=== PATIENT | female | born 1980 | race Caucasian/White ===

== ENCOUNTER 2016-11-14 19:59 | Emergency (ER) | payer MEDICAID, OTHER ==
[~2016-11-14] VITALS: Ht 160 cm; Wt 106.0 kg
[~2016-11-14 19:59] MED LIST: ZOFR4TAB3 SL
[2016-11-14 20:01] VITALS: BP 131/67; PULSE 82; RESP 16; TEMP 98.3; O2SAT 98
[2016-11-15] MEDS ORDERED: SODIUM CHLOR 0.9% 1000 ML INJ 1,000 ML IV SCH (00:25)
--- NOTE | 2016-11-15 00:29 | PD ---
HPI Chief Complaint: Abdominal Pain Time Seen by Provider: 00:25 Travel History International Travel<30 days: No Contact w/Intl Traveler<30days: No Traveled to known affect area: No History of Present Illness HPI 36-year-old female presents to the emergency department by private transportation for complaint of nausea vomiting abdominal pain and diarrhea. Symptoms began this evening. Patient has vomited 5 times and had diarrhea 4 times. Patient denies fever or chills respiratory illness or dysuria. Patient' s had no hematemesis no coffee-ground emesis no melena or hematochezia. Patient has 3 children who have had the same symptoms. Patient denies any dietary indiscretion no reportable water ingestion or foreign travel. Patient is status post cholecystectomy. Patient has history of gastritis. Patient is taking no medications for symptom relief. Patient's had normal urine output. Last menstrual. Was 3 weeks ago and normal for her. Pain is rated as 8-9/10 in intensity. PFSH Past Medical History Narrative Medical Gastritis cholecystectomy 4 para 3 nursing notes reviewed ?: Not LMP: 3 WKS AGO : 4 Para: 3 Tubal Ligation: Yes Past Surgical History Cholecystectomy: Yes Social History Alcohol Use: No Tobacco Use: No Substance Use: No Allergies-Medications (Allergen,Severity, Reaction): Coded Allergies: No Known Allergies (Unverified , 11/15/16) Reported Meds & Prescriptions Reported Meds & Active Scripts Active No Active Prescriptions or Reported Medications Review of Systems Except as stated in HPI: all other systems reviewed are Neg General / Constitutional: No: Fever, Chills HENT: No: Congestion Cardiovascular: No: Chest Pain or Discomfort Respiratory: No: Shortness of Breath Gastrointestinal: Positive: Nausea, Vomiting, Diarrhea, Abdominal Pain Genitourinary: No: Dysuria, Flank Pain Musculoskeletal: No: Myalgias, Arthralgias Skin: No Rash Neurologic: No: Weakness Hematologic/Lymphatic: No: Lymph Node Enlargement Physical Exam Narrative GENERAL: Well-developed well-nourished obese female in no acute distress no respiratory distress SKIN: Warm and dry. HEAD: Normocephalic. EYES: No scleral icterus. No injection or drainage. NECK: Supple, trachea midline. No JVD or lymphadenopathy. CARDIOVASCULAR: Regular rate and rhythm without murmurs, gallops, or rubs. RESPIRATORY: Breath sounds equal bilaterally. No accessory muscle use. GASTROINTESTINAL: Abdomen soft, reproducible epigastric tenderness without guarding or rebound, nondistended. MUSCULOSKELETAL: No cyanosis, or edema. BACK: Nontender without obvious deformity. No CVA tenderness. Data Data Last Documented VS Vital Signs Date Time Temp Pulse Resp B/P Pulse Ox O2 Delivery O2 Flow Rate FiO2 11/14/16 20:01 98.3 82 16 131/67 98 Room Air Orders Complete Blood Count With Diff (11/15/16 00:25) Comprehensive Metabolic Panel (11/15/16 00:25) Lipase (11/15/16 00:25) Urinalysis - C+S If Indicated (11/15/16 00:25) Iv Access Insert/Monitor (11/15/16 00:25) Ecg Monitoring (11/15/16 00:25) Oximetry (11/15/16 00:25) Ondansetron Inj (Zofran Inj) (11/15/16 00:30) Pantoprazole Inj (Protonix Inj) (11/15/16 00:30) Sodium Chlor 0.9% 1000 Ml Inj (Ns 1000 M (11/15/16 00:25) Sodium Chloride 0.9% Flush (Ns Flush) (11/15/16 00:30) Ed Urine Pregnancytest Poc (11/15/16 00:25) Labs Laboratory Tests Test 11/15/16 11/15/16 00:26 00:40 White Blood Count 11.3 TH/MM3 Red Blood Count 4.24 MIL/MM3 Hemoglobin 12.2 GM/DL Hematocrit 36.4 % Mean Corpuscular Volume 85.8 FL Mean Corpuscular Hemoglobin 28.8 PG Mean Corpuscular Hemoglobin 33.5 % Concent Red Cell Distribution Width 14.5 % Platelet Count 241 TH/MM3 Mean Platelet Volume 8.6 FL Neutrophils (%) (Auto) 81.2 % Lymphocytes (%) (Auto) 11.1 % Monocytes (%) (Auto) 6.7 % Eosinophils (%) (Auto) 0.7 % Basophils (%) (Auto) 0.3 % Neutrophils # (Auto) 9.2 TH/MM3 Lymphocytes # (Auto) 1.3 TH/MM3 Monocytes # (Auto) 0.8 TH/MM3 Eosinophils # (Auto) 0.1 TH/MM3 Basophils # (Auto) 0.0 TH/MM3 CBC Comment DIFF FINAL Differential Comment Sodium Level 139 MEQ/L Potassium Level 4.1 MEQ/L Chloride Level 108 MEQ/L Carbon Dioxide Level 24.5 MEQ/L Anion Gap 7 MEQ/L Blood Urea Nitrogen 10 MG/DL Creatinine 0.71 MG/DL Estimat Glomerular Filtration 94 ML/MIN Rate Random Glucose 92 MG/DL Calcium Level 8.2 MG/DL Total Bilirubin 0.8 MG/DL Aspartate Amino Transf 19 U/L (AST/SGOT) Alanine Aminotransferase 20 U/L (ALT/SGPT) Alkaline Phosphatase 84 U/L Total Protein 7.4 GM/DL Albumin 3.6 GM/DL Lipase 69 U/L Urine Color YELLOW Urine Turbidity HAZY Urine pH 6.0 Urine Specific [place] 1.028 Urine Protein TRACE mg/dL Urine Glucose (UA) NEG mg/dL Urine Ketones NEG mg/dL Urine Occult Blood NEG Urine Nitrite NEG Urine Bilirubin NEG Urine Urobilinogen LESS THAN 2.0 MG/DL Urine Leukocyte Esterase SMALL Urine RBC 3 /hpf Urine WBC 4 /hpf Urine Squamous Epithelial 5 /hpf Cells Urine Mucus FEW /lpf Microscopic Urinalysis Comment CULT NOT INDICATED MDM Medical Decision Making Medical Screen Exam Complete: Yes Emergency Medical Condition: Yes Medical Record Reviewed: Yes Interpretation(s) CBC & BMP Diagram 11/15/16 00:26 Differential Diagnosis Abdominal pain, gastritis, gastroenteritis, food borne illness, viral syndrome, electrolyte disturbance, pancreatitis, peptic ulcer disease, doubt choledocholithiasis Narrative Course IV access obtained specimens collected and sent for resulting patient administered IV Protonix 40 mg and IV Zofran 4 mg @1:36 AM patient is awakened from sleeping soundly and reports that she feels clinically improved; patient is stable for outpatient management and follow-up with her primary care physician. Diagnosis Primary Impression: Gastroenteritis Referrals: Primary Care Physician call for appointment Patient Instructions: General Instructions Departure Forms: Tests/Procedures, Work Release Special Instructions: no work x 1 day Additional Instructions: Follow clear liquid diet for next 12-24 hours advance as tolerated bland/[place] diet then regular diet Take Carafate as prescribed as needed for gastric discomfort associated with inflammation/gastritis Take Zofran as prescribed as needed for nausea and/or vomiting Follow-up with primary care physician No work times one day Return to the emergency department for any concerns or change in condition Take acetaminophen/Tylenol for fever 100.4F or greater or for minor pain; do not take nonsteroidal antipyretic medication such as ibuprofen/Advil/Motrin or Aleve/Naprosyn/naproxen Recommend use of Pepcid AC per package directions 2 weeks Med/Other Pt SpecificInfo: Prescription(s) given Scripts Sucralfate Liq (Carafate Liq)1 Gm/10 Ml Susp1 Gm PO QID 7 Days Ref 0 on empty stomach Prov:Silva Liao MD 11/15/16 Ondansetron Odt (Zofran Odt)4 Mg Tab4 Mg SL Q6HR PRN (Nausea/Vomiting) #10 TAB Ref 0 Prov:Silva Liao MD 11/15/16 Disposition: 01 DISCHARGE HOME Condition: Stable Silva Liao MD Nov 15, 2016 00:28
[2016-11-15] MEDS ORDERED: PANTOPRAZOLE SODIUM 40 MG VIAL IVP ONE (00:30)
[2016-11-15] MEDS ORDERED: ONDANSETRON HCL 4 MG/2 ML VIAL IVP ONE (00:30)
[2016-11-15] MEDS ORDERED: SODIUM CHLORIDE 0.9% FLUSH 5 ML FLUSH IVF PRN (00:30)
[2016-11-15 00:46] LABS: AUTOMATED NEUTROPHIL # 9.2 TH/MM3 (1.8-7.7); BASOPHIL % 0.3 % (0.0-2.0); EOSINOPHIL # 0.1 TH/MM3 (0-0.4); EOSINOPHIL % 0.7 % (0.0-4.0); HEMATOCRIT 36.4 % (35.0-46.0); HEMO FLAGS DIFF FINAL; LYMPH % 11.1 % (9.0-44.0); LYMPHOCYTE # 1.3 TH/MM3 (1.0-4.8); MEAN CELL VOLUME 85.8 FL (80.0-100.0); MEAN CORPUSCULAR HEMOGLOBIN 28.8 PG (27.0-34.0); MEAN CORPUSCULAR HGB CONC 33.5 % (32.0-36.0); MONO % 6.7 % (0.0-8.0); NEUT % 81.2 % (16.0-70.0); PLATELET COUNT 241 TH/MM3 (150-450); RED BLOOD COUNT 4.24 MIL/MM3 (4.00-5.30); RED CELL DISTRIBUTION WIDTH 14.5 % (11.6-17.2); WHITE BLOOD COUNT 11.3 TH/MM3 (4.0-11.0)
[2016-11-15 00:53] LABS: BLOOD, URINE NEG (NEG); COMMENT (UR) CULT NOT INDICATED; CULTURE IF INDICATED CULT NOT INDICATED; GLUCOSE,URINE NEG (NEG); KETONE, URINE NEG (NEG); MUCUS URINE FEW /lpf (OCC); NITRITE,URINE NEG (NEG); SQUAMOUS EPITHELIAL CELL URINE 5 /hpf (0-5); URINE COLOR YELLOW (YELLW/STRAW)
[2016-11-15 01:15] LABS: ALKALINE PHOSPHATASE 84 U/L (45-117); TOTAL BILIRUBIN ADULT 0.8 MG/DL (0.2-1.0)
[2016-11-15 01:16] LABS: ALT (GPT) 20 U/L (10-53); ANION GAP 7 MEQ/L (5-15); AST (GOT) 19 U/L (15-37); BICARBONATE 24.5 MEQ/L (21.0-32.0); BLOOD UREA NITROGEN 10 MG/DL (7-18); CHLORIDE 108 MEQ/L (98-107); GLOMERULAR FILTRATION RATE 94 ML/MIN (>89); POTASSIUM 4.1 MEQ/L (3.5-5.1); SODIUM (NA) 139 MEQ/L (136-145)
[2016-11-15] MEDS ORDERED: CARA1SUS3 PO (01:35)
[2016-11-15] MEDS ORDERED: ZOFR4TAB3 SL (01:35)
[2016-11-15 01:42] VITALS: RESP 20
[2016-11-15 02:30] VITALS: BP 102/50
== END 2016-11-15 02:48 | disposition home or self-care (01) ==
LOC: NEPC 19:59
DX: K52.9 Noninfective gastroenteritis and colitis, unspecified (principal)
CPT/HCPCS: 80053; 81001; 83690; 84703; 85025; 96361; 96374; 96375; 99284; C9113; J2405; J7030